=== PATIENT | female | born 1955 | race Caucasian/White ===

== ENCOUNTER → 2024-01-04 | Day surgery (SDC) | payer MEDICARE ==
[2024-01-03 14:22] LABS: BASOPHILS % 0.6 % (0.0-1.0); EOSINOPHILS # (AUTO) 0.1 (0.0-0.4); EOSINOPHILS % 1.3 % (0.0-6.0); HEMATOCRIT 44.3 % (34.2-44.1); HEMOGLOBIN 15.1 g/dL (12.0-16.0); MEAN CORPUSCULAR HEMOGLOBIN 29.8 pg (28-32); MEAN CORPUSCULAR HGB CONC 34.1 g/dL (31-35); MEAN CORPUSCULAR VOLUME 87.5 fL (81-99); MONOCYTES # (AUTO) 0.6 (0.2-0.8); NEUTROPHILS # (AUTO) 4.2 (2.1-6.9); PLATELET COUNT 233 x10e3/uL (140-360); RED BLOOD COUNT 5.06 x10e6/uL (3.6-5.1); RED CELL DISTRIBUTION WIDTH 13.7 % (11.7-14.4); WHITE BLOOD COUNT 6.89 x10e3/uL (4.8-10.8)
[2024-01-03 14:59] LABS: ALANINE AMINOTRANSFERASE 31 IU/L (0-55); ALBUMIN 4.1 g/dL (3.5-5.0); ALBUMIN/GLOBULIN RATIO 1.5 (0.8-2.0); ALKALINE PHOSPHATASE 93 IU/L (40-150); BILIRUBIN,TOTAL 1.5 mg/dL (0.2-1.2); BLOOD UREA NITROGEN 31 mg/dL (7-26); BUN/CREATININE RATIO 38 (6-25); CHLORIDE 107 mmol/L (98-107); CHOLESTEROL 237 MD/DL (0-199); CREATININE, SERUM 0.82 mg/dL (0.57-1.11); EST GLOMERULAR FILTRATION RATE 78 ML/MIN (>=60); GLUCOSE 90 mg/dL (74-118); HDL CHOLESTEROL 79 MG/DL (40-60); LDL CHOLESTEROL 119 MG/DL (60-130); TOTAL PROTEIN 6.8 g/dL (6.5-8.1); TRIGLYCERIDES 196 MG/DL (0-149)
[2024-01-03 17:17] LABS: COVID 19 ANTIGEN NOT DETECTED (NEGATIVE)
[2024-01-04] VITALS (16 sets, daily range): BP systolic 139–184; BP diastolic 61–95; PULSE 59–71; RESP 14–18; TEMP 96.1–97.8; O2SAT 61–100
[~2024-01-04] VITALS: Ht 160 cm; Wt 62.6 kg
[~2024-01-04] MED LIST: ASPIRIN 325 MG TAB ONE; ASPIRIN81 MG PO; ATIVAN0.5 MG PO; ATROPINE SULFATE 0.1 MG/ML 10ML SYR ONE; CLOPIDOGREL BISULFATE 75 MG TAB ONE; CRESTOR10 MG PO; DIOVAN320 MG PO; FAMOTIDINE20 MG PO; FENTANYL CITRATE/PF 100MCG/2 ML INJ ONE; HEPARIN SOD (PORCINE) 1000 UNIT/ML 30ML ONE; HEPARIN SOD/SOD CHLORIDE 2,000 ML ONE; HYDROCHLOROTHIA25 MG PO; IOPAMIDOL 370 MG/ML 100 ML INFUS..BTL INJ ONE; LIDOCAINE HCL 2% LOCAL 20 ML VIAL ONE; MIDAZOLAM HCL 2 MG/2 ML VIAL ONE; NIFEDIPINE ER30 M1 PO; NITROGLYCERIN/D5W 200 MCG/ML 250 ML ONE; NITROGLYCERIN0.4 MG SL; ONDANSETRON ODT4 MG PO; SODIUM CHLORIDE 0.9% 1000ML 1,000 ML ONE; VERAPAMIL HCL 2.5 MG/ML 2 ML VIAL ONE
[2024-01-04 03:35] LABS: ANION GAP 12.8 mmol/L (8-16); CALCIUM 9.7 mg/dL (8.4-10.2); SODIUM 139 mmol/L (136-145)
[2024-01-04 03:36] LABS: CARBON DIOXIDE 23 mmol/L (22-29); POTASSIUM 3.8 mmol/L (3.5-5.1)
[2024-01-04] MEDS: ALPRAZOLAM 0.5 MG TAB ONE (07:26)
[2024-01-04] MEDS: DIPHENHYDRAMINE HCL 25 MG CAP ONE (07:27)
== END | disposition home or self-care (01) ==
LOC: CATH LAB 06:41
PROVIDERS: ATTEND Internal Medicine
DX: I25.118 Atherosclerotic heart disease of native coronary artery with other forms of angina pectoris (principal); R94.39 Abnormal result of other cardiovascular function study; R93.1 Abnormal findings on diagnostic imaging of heart and coronary circulation; I10 Essential (primary) hypertension; E78.2 Mixed hyperlipidemia; Z11.52 Encounter for screening for COVID-19; Z01.812 Encounter for preprocedural laboratory examination; Z79.82 Long term (current) use of aspirin; Z79.899 Other long term (current) drug therapy; Z82.49 Family history of ischemic heart disease and other diseases of the circulatory system; Z82.3 Family history of stroke
CPT/HCPCS: 93458; C9600; 0223U; 36415; 76937; 80053; 80061; 83880; 85025; 92928; 99152; 99153; C1725; C1769; C1874; C1887; J1644; J2001; J2250; J7030; Q9967